=== PATIENT | male | born 1990 | race Two or more races ===

== ENCOUNTER 2020-09-01 14:44 | Emergency (ER) | payer OTHER ==
[~2020-09-01] VITALS: Ht 165.1 cm; Wt 95.3 kg
[~2020-09-01 14:44] MED LIST: IBUP-1984 PO; no home med
[2020-09-01] MEDS ORDERED: HYDROcodone/acetaminophen 10/325mg tab PO STA (16:03)
[2020-09-01] MEDS ORDERED: LIDOcaine 1% W/epiNEPHrine 1:200,000 10ml vial IJ ONE (16:15)
[2020-09-01] MEDS ORDERED: LIDOcaine 1% w/epiNEPHrine 1:200,000 30ml vial IJ ONE (16:25)
[2020-09-01] MEDS ORDERED: morphine 4 MG/ML inj SYRINge IM ONE (17:00)
[2020-09-01] MEDS ORDERED: HYDR-3965 PO (18:05)
[2020-09-01] MEDS ORDERED: CEPH-572 PO (18:05)
[2020-09-01 19:07] VITALS: BP 109/74
== END 2020-09-01 19:08 | disposition home or self-care (01) ==
LOC: ER 14:44
DX: S62.339A Displaced fracture of neck of unspecified metacarpal bone, initial encounter for closed fracture (principal); S41.111A Laceration without foreign body of right upper arm, initial encounter; S50.311A Abrasion of right elbow, initial encounter; S50.312A Abrasion of left elbow, initial encounter; M25.551 Pain in right hip; F12.90 Cannabis use, unspecified, uncomplicated; Z72.89 Other problems related to lifestyle; Z60.2 Problems related to living alone; Z56.0 Unemployment, unspecified; Z79.2 Long term (current) use of antibiotics; Z79.899 Other long term (current) drug therapy; X58.XXXA Exposure to other specified factors, initial encounter; Y93.55 Activity, bike riding; Y92.89 Other specified places as the place of occurrence of the external cause; Y99.8 Other external cause status
CPT/HCPCS: 12006; 29125; 73080; 73110; 73502; 96372; 99285; J2270